=== PATIENT | female | born 2000 | race Two or more races ===

== ENCOUNTER 2024-01-28 03:39 | Inpatient (IN) ==
[2024-01-28] MEDS ORDERED: Prochlorperazine 5 mg/ml 2 ml VIAL (10 mg) IV PRN (04:06)
[2024-01-28] MEDS ORDERED: Lidocaine 1% VIAL 10 MG/ML 30 ML VIAL INJ PRN (04:06)
[2024-01-28] MEDS ORDERED: Nalbuphine 10 MG/ML 1 ML VIAL IV PRN (04:06)
[2024-01-28] MEDS: Penicillin G Potassium IV 5,000,000 UNITS in NS 0.9% 100 ml BAG 100 ML IVPB ONE (04:30)
[2024-01-28] MEDS: Lactated Ringers 1000 ml BAG 1,000 ML IV ONE ×2 (04:46→12:48)
[2024-01-28 05:29] LABS: Hematocrit 33.5 % (35-45); Hemoglobin 10.6 g/dL (11.5-14.3); Mean Corpuscular Hgb Conc 31.7 g/dL (31-36); Mean Corpuscular Volume 72.7 fL (80-97); Mean Platelet Volume 9.9 fL (7.5-11.2); Platelet Count 196 10^3/uL (150-450); Red Blood Count 4.61 10^6/uL (3.63-4.92); Red Cell Distribution Width 17.7 % (12-17); White Blood Count 14.4 10^3/uL (3.8-11.8)
[2024-01-28] MEDS ORDERED: Sodium Citrate/Citric Acid LIQ 15 ML UDC PO PRN (06:42)
[2024-01-28] MEDS ORDERED: Phenylephrine 40 mcg/mL 10mL (400mcg) SYRINGE IV PUSH PRN ×2 (06:42)
[2024-01-28 06:45] LABS: ABS Basophils 0.1 10^3/uL (0.0-0.1); ABS Lymphocytes 1.9 10^3/uL (1.0-4.8); ABS Monocytes 0.5 10^3/uL (0.0-0.9); ABS Neutrophils 11.9 10^3/uL (1.5-7.6); ABS Nucleated RBC 0.01 10^3/ul; Anisocytosis 2+; Eosinophil % 0.3 %; Lymphocyte % 13.3 %; Microcytosis 2+; Nucleated Red Blood Cells % 0.1 %/100WBC (0.0-0.8)
[2024-01-28 08:06] LABS: Urine Appearance Clear; Urine Bilirubin Negative (Negative); Urine Blood Negative (Negative); Urine Color Light-Yellow; Urine Glucose Negative (Negative); Urine Ketones 1+ (Negative); Urine Nitrite Negative (Negative); Urine Protein Negative (Negative); Urine Specific Gravity 1.022 (1.002-1.030); Urine Urobilinogen Negative (Negative)
[2024-01-28] MEDS: Buffered Lidocaine 1% SYRIN 1 ml INTRADERM ONE (08:22)
[2024-01-28 08:24] LABS: Urine Benzodiazepine Screen None Detected (None Detect); Urine Cannabinoids Screen None Detected (None Detect); Urine Opiates Screen None Detected (None Detect)
[2024-01-28] MEDS: Penicillin G Potassium IV 3,000,000 UNITS in NS 0.9% 100 ml BAG 100 ML IVPB SCH (08:34)
[2024-01-28] MEDS: Oxytocin in LR 20,000 MILLI.UNIT/1,000 ML BAG IV SCH (09:00)
[2024-01-28] MEDS: OBEPIDURAL (200 ML) 0 ML EPIDURAL ONE (12:44)
[2024-01-28] MEDS: Lidocaine 1.5% EPI 1:200,000 30 ML SDV ONE (12:44)
[2024-01-28] MEDS: EPINEPHrine Anaphylaxis SYR CERTADOSE SYR KIT ONE (12:44)
[2024-01-28] MEDS: Phenylephrine 40 mcg/mL 10mL (400mcg) SYRINGE ONE (12:44)
[2024-01-28] MEDS: Lactated Ringers 1000 ml BAG 1,000 ML IV SCH ×2 (12:45→12:48)
[2024-01-28] MEDS ORDERED: Glycerin ADULT 2.4 gm SUPP PR PRN (12:58)
[2024-01-28] MEDS ORDERED: Lactated Ringers 1000 ml BAG 1,000 ML IV SCH (13:00)
[2024-01-28] MEDS: Oxytocin in LR 20,000 MILLI.UNIT/1,000 ML BAG IV ONE (13:11)
[2024-01-28] MEDS: Dibucaine 1% OINT 28.35 GM TUBE PR PRN (14:34)
[2024-01-28] MEDS: Witch Hazel PAD JAR TOPICAL PRN (14:34)
[2024-01-29 07:05] LABS: ABS Basophils 0.1 10^3/uL (0.0-0.1); ABS Eosinophils 0.1 10^3/uL (0.0-0.5); ABS Lymphocytes 2.5 10^3/uL (1.0-4.8); ABS Monocytes 0.5 10^3/uL (0.0-0.9); ABS Neutrophils 6.8 10^3/uL (1.5-7.6); Eosinophil % 1.1 %; Hematocrit 26.3 % (35-45); Hemoglobin 8.4 g/dL (11.5-14.3); Lymphocyte % 25.1 %; Mean Corpuscular Hemoglobin 23.6 pg (27-33); Mean Corpuscular Hgb Conc 31.9 g/dL (31-36); Mean Corpuscular Volume 73.8 fL (80-97); Mean Platelet Volume 9.2 fL (7.5-11.2); Platelet Count 160 10^3/uL (150-450); Red Blood Count 3.57 10^6/uL (3.63-4.92)
[2024-01-30 08:55] VITALS: BP 110/63
== END 2024-01-30 13:09 | disposition home or self-care (01) | DRG 560 ==
LOC: MCHOBOUT 03:39 → MCHOB 04:04